=== PATIENT | female | born 1980 | race Caucasian/White ===

== ENCOUNTER 2019-04-05 13:00 | Emergency (ER) | payer SELFPAY ==
[~2019-04-05] VITALS: Ht 157.5 cm; Wt 71.2 kg
[2019-04-05 13:20] VITALS: Ht 157.5 cm; Wt 71.2 kg
[2019-04-05 18:22] VITALS: BP 110/86
== END 2019-04-05 18:22 | disposition home or self-care (01) ==
LOC: ED 13:00
DX: R51 Headache (principal); H53.149 Visual discomfort, unspecified; R11.0 Nausea
CPT/HCPCS: J1200; J1885; J2765; J7030